=== PATIENT | male | born 1980 | race Two or more races ===

== ENCOUNTER 2019-10-13 16:57 | Inpatient (IN) | payer MEDICAID, OTHER ==
[~2019-10-13] VITALS: Ht 193 cm; Wt 181.0 kg
[2019-10-13 18:59] LABS: Basophils # (auto) 0 10 ^3/uL (0-0.2); Basophils % (auto) 0.3 % (0.0-2.0); Eosinophils # (auto) 0.1 10 ^3/uL (0-0.8); Lymphocytes # (auto) 1.1 10 ^3/uL (0.4-5.4); Monocytes # (auto) 1.1 10 ^3/uL (0-1.3)
[2019-10-13 19:03] LABS: Eosinophils % (auto) 1.1 % (0.0-7.0); Hematocrit 41.8 % (41.0-53.0); Mean Corpuscular Hemoglobin 28.9 pg (28.0-32.0); Mean Corpuscular Hgb Conc. 33.5 g/dL (32.0-36.0); Mean Corpuscular Volume 86.3 fL (80.0-100.0); Monocytes % (auto) 12.1 % (0.0-12.0); Neutrophils # (auto) 6.8 10 ^3/uL (1.6-8.6); Neutrophils % (auto) 74.5 % (37.0-80.0); Nucleated Red Blood Cells % 0.1 %; Platelet Count (auto) 206 10^3/uL (140-450); Red Blood Cells 4.84 10^6/uL (4.5-5.90); Red Cell Distribution Width 12.9 % (11.8-14.3); White Blood Cell 9.2 10^3/uL (4.4-10.8)
[2019-10-13 19:15] LABS: Albumin 2.8 g/dL (3.4-5.0); Calcium 8.9 mg/dL (8.5-10.1); Magnesium 2.3 mg/dL (1.6-2.6); Potassium 3.7 mmol/L (3.5-5.1)
[2019-10-13 19:21] LABS: BUN/Creatinine Ratio 9.3; Bilirubin, Total 0.5 mg/dL (0.2-1.0); Total Protein 7.7 g/dL (6.4-8.2)
[2019-10-13] MEDS ORDERED: ENOXAPARIN SOD 150 MG/1 ML SYRINGE SC ONE (19:45)
[2019-10-13 20:28] LABS: INR 0.95 (0.9-1.15); Partial Thromboplastin Time 28.5 sec (23.64-32.05)
[2019-10-13] MEDS ORDERED: ZOLPIDEM TARTRATE 5 MG TAB PO PRN (20:45)
[2019-10-13] MEDS: CLINDAMYCIN 600MG IV 50 ML IV SCH ×2 (20:45→23:46)
[2019-10-13] MEDS ORDERED: NITROGLYCERIN 0.4 MG SL TAB SL PRN (20:45)
[2019-10-13] MEDS ORDERED: ONDANSETRON HCL 4 MG/2 ML VIAL IV PRN (20:45)
[2019-10-13] MEDS ORDERED: MORPHINE SULF INJ 2 MG/ML SYRINGE 1ML IV PRN (20:45)
[2019-10-13] MEDS ORDERED: LORazepam 0.5 MG TAB PO PRN (20:45)
[2019-10-13] MEDS ORDERED: DEXTROSE (50%) 50ML SYRG IV PRN (20:45)
[2019-10-13] MEDS: ENOXAPARIN SOD 100 MG/1 ML SYRINGE SC SCH (22:00)
[2019-10-13 22:15] VITALS: BP 132/74
[2019-10-13] MEDS: SODIUM CHLORIDE 0.9% 1,000 ML IV SCH (22:15)
--- NOTE | 2019-10-13 22:15 | NUR ---
Telemetry admit from ER ANURAG LAZAR admitted to Telemetry unit after SBAR received. Patient oriented to PAULO FRITZ, RN primary RN, unit, room, bed, and unit policies regarding patient care and visiting hours. Patient now on continuous telemetry monitoring, tele box # 69 and telemetry reading on arrival to unit is sinus rhythm at 90 beats per minute. Patient weighed by bedscale and encouraged to call if they need something. All questions and concerns addressed, patient verbalized understanding. Redness and edema noted to right lower extremity, skin intact, patient reports he was recently diagnosed with cellulitis and has begun taking Clindamycin for the infection. Bed in lowest locked position, side rails up x2, call light within reach. Will round every hour and as needed and continue to monitor
[2019-10-13 22:17] VITALS: BP 132/74
--- NOTE | 2019-10-13 23:15 | NUR ---
Critical Troponin from lab at 22:15, trending up, now 14.1. Received from phone call from Dr. Burns at 23:13, new order received for Left Heart Cath at 08:00 tomorrow, 10/14/19. Order read back and verified, will implement and continue care. Received call from lab at time of note for a critical Troponin of 15.6. Ricardo Burns and Duc aware. Will continue care.
[2019-10-13] MEDS: CARVEDILOL 3.125 MG TAB PO SCH (23:46)
[2019-10-13] MEDS: ATORVASTATIN 20 MG TAB PO SCH (23:46)
[2019-10-13] MEDS: ACCU-CHEK COMFORT CURVE STRIP VI SCH (23:46)
[2019-10-13] MEDS: ACETAMINOPHEN 325 MG TAB PO PRN (23:47)
--- NOTE | 2019-10-14 | NUR ---
Patient refusing to sign consents, states he has questions for Dr. Burns. Consents placed in the front of the chart, checklist begun, and patient made NPO at this time. Will continue care.
[2019-10-14] MEDS: InsuLIN REG 1unit/0.01ml Soln (100units/ml) SC SCH ×4 (00:37→17:55)
[2019-10-14 05:14] VITALS: BP 136/82
[2019-10-14] MEDS: ACCU-CHEK COMFORT CURVE STRIP VI SCH ×3 (06:10→17:29)
[2019-10-14] MEDS ORDERED: METF-370 PO (06:10)
[2019-10-14] MEDS ORDERED: CLIN300C8 PO (06:10)
[2019-10-14] MEDS: CLINDAMYCIN 600MG IV 50 ML IV SCH ×3 (06:10→17:28)
[2019-10-14 06:51] LABS: Basophils # (auto) 0 10 ^3/uL (0-0.2); Basophils % (auto) 0.3 % (0.0-2.0); Eosinophils # (auto) 0.1 10 ^3/uL (0-0.8); Eosinophils % (auto) 1.7 % (0.0-7.0); Hematocrit 41.3 % (41.0-53.0); Hemoglobin 13.7 g/dL (13.5-17.5); Lymphocytes # (auto) 1.2 10 ^3/uL (0.4-5.4); Mean Corpuscular Hemoglobin 29.3 pg (28.0-32.0); Mean Corpuscular Hgb Conc. 33.3 g/dL (32.0-36.0); Mean Corpuscular Volume 87.9 fL (80.0-100.0); Monocytes # (auto) 0.9 10 ^3/uL (0-1.3); Monocytes % (auto) 10.9 % (0.0-12.0); Neutrophils # (auto) 6.3 10 ^3/uL (1.6-8.6); Neutrophils % (auto) 73.1 % (37.0-80.0); Nucleated Red Blood Cells % 0.1 %; Platelet Count (auto) 197 10^3/uL (140-450); Red Cell Distribution Width 13.1 % (11.8-14.3); White Blood Cell 8.7 10^3/uL (4.4-10.8)
--- NOTE | 2019-10-14 07:00 | NUR ---
Patient lying in bed, awake and alert. No s/s of distress. Bed in lowest locked position, side rails up x2, call light within reach. Care endorsed to dayshift RN.
[2019-10-14 07:12] LABS: Potassium 3.4 mmol/L (3.5-5.1)
[2019-10-14 07:18] LABS: BUN/Creatinine Ratio 10.1; Calcium 8.8 mg/dL (8.5-10.1)
[2019-10-14] MEDS: ASPirin 81 mg TAB PO SCH (07:46)
[2019-10-14] MEDS: CLOPIDOGREL BISULFATE 75 MG TAB PO SCH (07:46)
[2019-10-14] MEDS: CARVEDILOL 3.125 MG TAB PO SCH ×2 (07:46→22:13)
[2019-10-14] MEDS: LISINOPRIL 10 MG TAB PO SCH (07:47)
--- NOTE | 2019-10-14 08:00 | NUR ---
[facility] RECEIVED CALL FROM DIRECTOR OF PHYSIOTHERAPY SERVICES RN, PER MARISOL SANCHES, PATIENT EXCEEDS WEIGHT FOR CARDIAC TABLE, AND PROCEDURE WILL BE CANCELLED. WILL NOTIFY LOCKS INSPECTOR HOSPITALIST.
--- NOTE | 2019-10-14 08:05 | NUR ---
TENSION WORKER HOSPITALIST PAGE OUT TO TENSION WORKER HOSPITALIST TO NOTIFY OF CANCELLED LHC WITH CRITICAL TROP LEVEL. AWAITING CALL BACK.
[2019-10-14 09:00] VITALS: BP 125/79
--- NOTE | 2019-10-14 09:30 | NUR ---
IVORY CARVER HOSPITALIST PAGE #2 OUT TO IVORY CARVER HOSPITALIST TO NOTIFY OF CANCELLED LHC WITH CRITICAL TROP LEVEL. AWAITING CALL BACK.
[2019-10-14] MEDS: ENOXAPARIN SOD 100 MG/1 ML SYRINGE SC SCH ×2 (10:00→22:12)
[2019-10-14] MEDS: DOCUSATE SOD 100 MG CAP PO SCH (10:00)
[2019-10-14] MEDS: SODIUM CHLORIDE 0.9% 1,000 ML IV SCH ×2 (10:02→22:13)
--- NOTE | 2019-10-14 11:50 | NUR ---
CALL OUT TO MD LUI TO NOTIFY OF CANCELLED LHC WITH CRITICAL TROP LEVEL. AWAITING CALL BACK.
--- NOTE | 2019-10-14 12:00 | NUR ---
MD LUI AWARE OF PATIENTS STATUS AND CANCELLED CARDIAC INTERVENTION. PER MD PATIENT CAN RESUME DIET. NO NEW ORDERS RECEIVED.
[2019-10-14 13:00] VITALS: BP 124/75
--- NOTE | 2019-10-14 13:50 | NUR ---
CP PATIENT STATES HE IS HAVING CHEST PAIN DESCRIBED PRESSURE THAT RADIATES TO LEFT SHOULDER. WILL INITIATE CHEST PAIN PROTOCOL AND DO BED SIDE EKG.
[2019-10-14] MEDS ORDERED: POTASSIUM EFFERVESENT TAB 25 MEQ PO ONE ×2 (14:15→14:30)
--- NOTE | 2019-10-14 14:15 | NUR ---
MD LUI AT BED SIDE AND AWARE OF ABNORMAL EKG, PATIENTS CP COMPLAINT, AND LATEST LABS AND VITAL SIGNS. REFER TO ORDER HX.
[2019-10-14] MEDS ORDERED: OPTISON 3ml Vial for INJ IV ONE (16:04)
[2019-10-14 17:00] VITALS: BP 130/88
[2019-10-14] MEDS: FUROSEMIDE 20 MG TAB PO SCH (17:29)
[2019-10-14] MEDS: Glucerna Carbsteady SHAKE Vanilla 8oz PO SCH (17:54)
--- NOTE | 2019-10-14 19:30 | NUR ---
Opening Shift Note Assumed care of patient, awake and alert. No S/S of distress/SOB or pain. Instructed on POC and to call for assist PRN, will continue to monitor for changes Q1hr and PRN.
[2019-10-14] MEDS: ATORVASTATIN 20 MG TAB PO SCH (22:12)
[2019-10-15] MEDS: CLINDAMYCIN 600MG IV 50 ML IV SCH ×5 (00:59→23:36)
[2019-10-15] MEDS: ACCU-CHEK COMFORT CURVE STRIP VI SCH ×5 (01:00→23:37)
[2019-10-15] MEDS: InsuLIN REG 1unit/0.01ml Soln (100units/ml) SC SCH ×5 (01:19→23:46)
[2019-10-15 05:48] VITALS: BP 132/96
[2019-10-15] MEDS: FUROSEMIDE 20 MG TAB PO SCH ×2 (06:12→18:12)
[2019-10-15 06:26] LABS: Hematocrit 40.4 % (41.0-53.0); Hemoglobin 13.8 g/dL (13.5-17.5); Mean Corpuscular Hemoglobin 29.4 pg (28.0-32.0); Mean Corpuscular Hgb Conc. 34.1 g/dL (32.0-36.0); Mean Corpuscular Volume 86.3 fL (80.0-100.0); Platelet Count (auto) 217 10^3/uL (140-450); Red Blood Cells 4.69 10^6/uL (4.5-5.90); Red Cell Distribution Width 12.9 % (11.8-14.3)
[2019-10-15 06:41] LABS: Potassium 3.5 mmol/L (3.5-5.1)
[2019-10-15 06:45] LABS: Basophils % (manual) 0 (0.0-2.0); Blast Cells 0; Myelocytes % 0; Promyelocytes % 0; Reactive Lymphocytes 0
[2019-10-15 06:52] LABS: BUN/Creatinine Ratio 10.2; Calcium 8.5 mg/dL (8.5-10.1)
--- NOTE | 2019-10-15 07:02 | NUR ---
Patient has no complains of pain. No shortness of breath. Lab called regarding critical troponin of 26.1. Hospitalist Luis Sorensen NP, paged. Awaiting call back.
--- NOTE | 2019-10-15 07:29 | NUR ---
No call back from hospitalist. Will give report to oncoming RN.
[2019-10-15 07:35] LABS: Band Neutrophils % (manual) 1; Eosinophils % (manual) 3 (0-7); Lymphocytes % (manual) 14 (10.0-50.0); Metamyelocytes % 1; Monocytes % (manual) 9 (0-12)
--- NOTE | 2019-10-15 08:41 | NUR ---
Paged Dr Burns regarding increased trops. Awaiting a call back.
[2019-10-15 09:00] VITALS: BP 133/81
--- NOTE | 2019-10-15 09:19 | NUR ---
Spoke to Dr Burns. No new orders.
[2019-10-15] MEDS: DOCUSATE SOD 100 MG CAP PO SCH ×2 (10:00→10:10)
[2019-10-15] MEDS: Glucerna Carbsteady SHAKE Vanilla 8oz PO SCH ×3 (10:10→18:12)
[2019-10-15] MEDS: CARVEDILOL 3.125 MG TAB PO SCH ×2 (10:10→21:51)
[2019-10-15] MEDS: ASPirin 81 mg TAB PO SCH (10:10)
[2019-10-15] MEDS: LISINOPRIL 10 MG TAB PO SCH (10:11)
[2019-10-15] MEDS: ENOXAPARIN SOD 100 MG/1 ML SYRINGE SC SCH ×2 (10:11→21:52)
[2019-10-15] MEDS: CLOPIDOGREL BISULFATE 75 MG TAB PO SCH (10:11)
[2019-10-15 12:45] VITALS: BP 138/84
[2019-10-15] MEDS: SODIUM CHLORIDE 0.9% 1,000 ML IV SCH (12:45)
--- NOTE | 2019-10-15 14:05 | NUR ---
assessment re: ss consult Patient is a 39 year old male who is alert and oriented. Patients cognitive abilities are intact. Prior to admission patient lived home with family and functioned independently. Patient informed me he is able to care for his own ADLs. Per patient he will return home to his prior living arrangements post discharge and family will transport him home. Patient has no insurance. Patient has been assessed by Anirudh Cavanaugh of [facility]. Patient is not working at this time. Patient should qualify for [employer]. Anirudh is securing application. I have provided patient with resources for [facility], Dr. Burgess, and [facility] urgent care for follow up visits. I have provided patient with a prescription card from community assistance program. Patient informed me he had difficulty getting his medications due to no insurance. Patient also refused advanced directive. Estephania Stinson to see patient for discharge clinic. I informed patient he has a right to speak to a manager social services regarding all care. I informed patient he has a right to participate in any and all discharge planning. Patient does not have a POA and advanced directive. I have offered patient information on POA and advanced directives. I informed the patient the advantages and benefits of having an Advanced Directive. Patient verbalized understanding and agreed to discharge plan. Addendum: 10/15/19 at 1410 by Estephania DANIEL Amended: Links added.
[2019-10-15] MEDS: ACETAMINOPHEN 325 MG TAB PO PRN (16:59)
[2019-10-15 17:02] VITALS: BP 145/90
[2019-10-15] MEDS: ATORVASTATIN 20 MG TAB PO SCH (21:52)
[2019-10-15 22:00] VITALS: BP 132/86
[2019-10-16] MEDS: SODIUM CHLORIDE 0.9% 1,000 ML IV SCH ×2 (02:55→15:15)
[2019-10-16 05:00] VITALS: BP 147/86
[2019-10-16] MEDS: ACCU-CHEK COMFORT CURVE STRIP VI SCH ×4 (06:13→23:45)
[2019-10-16] MEDS: FUROSEMIDE 20 MG TAB PO SCH ×2 (06:13→17:58)
[2019-10-16] MEDS: CLINDAMYCIN 600MG IV 50 ML IV SCH ×4 (06:14→23:45)
[2019-10-16] MEDS: InsuLIN REG 1unit/0.01ml Soln (100units/ml) SC SCH ×3 (06:27→18:05)
--- NOTE | 2019-10-16 07:00 | NUR ---
Opening Shift Note Received report on the patient. Awake lying in bed. Patient shows no signs of distress at this time. Discussed plan of care with the patient. Bed in lowest position, side rails up x2, and the call light is within reach.
[2019-10-16 07:30] LABS: Hematocrit 37.8 % (41.0-53.0); Hemoglobin 12.9 g/dL (13.5-17.5); Mean Corpuscular Hemoglobin 29.1 pg (28.0-32.0); Mean Corpuscular Hgb Conc. 34.2 g/dL (32.0-36.0); Mean Corpuscular Volume 85.1 fL (80.0-100.0); Platelet Count (auto) 247 10^3/uL (140-450); Red Blood Cells 4.44 10^6/uL (4.5-5.90); Red Cell Distribution Width 12.9 % (11.8-14.3); White Blood Cell 7.5 10^3/uL (4.4-10.8)
[2019-10-16 07:32] LABS: Band Neutrophils % (manual) 0; Basophils % (manual) 0 (0.0-2.0); Blast Cells 0; Promyelocytes % 0; Reactive Lymphocytes 0
[2019-10-16 08:02] LABS: Calcium 8.6 mg/dL (8.5-10.1); Eosinophils % (manual) 2 (0-7); Lymphocytes % (manual) 17 (10.0-50.0); Metamyelocytes % 1; Monocytes % (manual) 8 (0-12); Myelocytes % 1; Potassium 3.7 mmol/L (3.5-5.1)
[2019-10-16 08:06] LABS: BUN/Creatinine Ratio 8.2
[2019-10-16 08:50] VITALS: BP 137/84
[2019-10-16] MEDS: DOCUSATE SOD 100 MG CAP PO SCH (10:00)
[2019-10-16] MEDS: CARVEDILOL 3.125 MG TAB PO SCH ×2 (10:35→22:19)
[2019-10-16] MEDS: CLOPIDOGREL BISULFATE 75 MG TAB PO SCH (10:35)
[2019-10-16] MEDS: ASPirin 81 mg TAB PO SCH (10:35)
[2019-10-16] MEDS: Glucerna Carbsteady SHAKE Vanilla 8oz PO SCH ×3 (10:35→17:58)
[2019-10-16] MEDS: ENOXAPARIN SOD 100 MG/1 ML SYRINGE SC SCH ×2 (10:36→22:19)
[2019-10-16] MEDS: LISINOPRIL 10 MG TAB PO SCH (10:36)
[2019-10-16 12:39] VITALS: BP 146/96
[2019-10-16 16:45] VITALS: BP 142/87
[2019-10-16 22:00] VITALS: BP 145/90
[2019-10-16] MEDS: ATORVASTATIN 20 MG TAB PO SCH (22:19)
[2019-10-17] MEDS: InsuLIN REG 1unit/0.01ml Soln (100units/ml) SC SCH ×3 (00:25→12:06)
[2019-10-17 05:00] VITALS: BP 139/71
[2019-10-17 05:10] LABS: Basophils # (auto) 0 10 ^3/uL (0-0.2); Basophils % (auto) 0.5 % (0.0-2.0); Eosinophils # (auto) 0.2 10 ^3/uL (0-0.8); Eosinophils % (auto) 2.4 % (0.0-7.0); Hematocrit 39.4 % (41.0-53.0); Hemoglobin 13.3 g/dL (13.5-17.5); Lymphocytes # (auto) 1.6 10 ^3/uL (0.4-5.4); Lymphocytes % (auto) 20.4 % (10.0-50.0); Mean Corpuscular Hgb Conc. 33.8 g/dL (32.0-36.0); Mean Corpuscular Volume 85.6 fL (80.0-100.0); Monocytes # (auto) 0.7 10 ^3/uL (0-1.3); Monocytes % (auto) 8.6 % (0.0-12.0); Neutrophils # (auto) 5.3 10 ^3/uL (1.6-8.6); Neutrophils % (auto) 68.1 % (37.0-80.0); Platelet Count (auto) 309 10^3/uL (140-450); Red Cell Distribution Width 12.9 % (11.8-14.3); White Blood Cell 7.9 10^3/uL (4.4-10.8)
[2019-10-17 05:17] LABS: Calcium 8.8 mg/dL (8.5-10.1); Potassium 3.8 mmol/L (3.5-5.1)
--- NOTE | 2019-10-17 05:41 | NUR ---
Lab called regarding critical troponin of 10.5, previously 17.4. Hospitalist Luis Sorensen,MATRIX INSPECTOR, made aware. No new orders at this time. Patient rounded. Patient has no SOB, no complains of pain. patient verbalized "everything is okay". Care continued.
[2019-10-17] MEDS: ACCU-CHEK COMFORT CURVE STRIP VI SCH ×2 (06:49→12:08)
[2019-10-17] MEDS: CLINDAMYCIN 600MG IV 50 ML IV SCH ×2 (06:50→11:54)
[2019-10-17] MEDS: FUROSEMIDE 20 MG TAB PO SCH (06:50)
[2019-10-17] MEDS: SODIUM CHLORIDE 0.9% 1,000 ML IV SCH (06:50)
--- NOTE | 2019-10-17 07:50 | NUR ---
Opening Shift Note Assumed care of patient, who is alert and oriented x4. Noted even chest rise and fall with respirations. No S/S of distress/SOB or pain. No reports of chest pain at this time. Bed is low, locked with 2x side rails up. Call light is within reach. Instructed on POC and to call for assist PRN, will continue to monitor for changes Q1hr and PRN.
[2019-10-17 09:00] VITALS: BP 137/93
[2019-10-17] MEDS: CLOPIDOGREL BISULFATE 75 MG TAB PO SCH (09:15)
[2019-10-17] MEDS: ASPirin 81 mg TAB PO SCH (09:15)
[2019-10-17] MEDS: CARVEDILOL 3.125 MG TAB PO SCH (09:15)
[2019-10-17] MEDS: Glucerna Carbsteady SHAKE Vanilla 8oz PO SCH ×2 (09:16→11:54)
[2019-10-17] MEDS: DOCUSATE SOD 100 MG CAP PO SCH (09:16)
[2019-10-17] MEDS: LISINOPRIL 10 MG TAB PO SCH (09:16)
[2019-10-17] MEDS: ENOXAPARIN SOD 100 MG/1 ML SYRINGE SC SCH (11:47)
[2019-10-17 13:00] VITALS: BP 128/80
--- NOTE | 2019-10-17 14:33 | NUR ---
Est energy needs [id number] kcal (20-23 kcal/kg IBW 89.1kg) Est protein needs 89-107g (1-1.2g/kg IBW 89.1kg) WIll reassess prn. Addendum: 10/17/19 at [address] Amended: Links added.
[2019-10-17] MEDS ORDERED: LISI-648 PO (15:30)
[2019-10-17] MEDS ORDERED: CEPH-37 PO (15:30)
[2019-10-17] MEDS ORDERED: CAR3125T PO (15:30)
[2019-10-17] MEDS ORDERED: ASPI81CH43 PO (15:30)
[2019-10-17] MEDS ORDERED: CLOP75TA28 PO (15:30)
[2019-10-17] MEDS ORDERED: ATOR20TA50 PO (15:30)
[2019-10-17] MEDS ORDERED: METF-489 PO (15:30)
[2019-10-17] MEDS ORDERED: DOXY-286 PO (15:31)
[2019-10-17 16:14] VITALS: BP 128/80
[2019-10-17 17:00] VITALS: BP 136/94
--- NOTE | 2019-10-17 17:52 | NUR ---
Discharge instructions given as ordered. Encourage to follow up with PMD as instructed. All questions and concerns addressed. Patient verbalized understanding. Home medications held in Pharmacy returned to patient. IV removed with catheter intact, pressure dressing applied. Telemetry unit returned to ICU. Patient taken to vehicle via wheelchair with all personal belongings, accompanied by staff. No distress noted at time of departure.
== END 2019-10-17 17:50 | disposition home or self-care (01) | DRG 190 ==
LOC: ER 16:57 → TELE 16:58 → TELE-WESTW 22:15
PROVIDERS: ADMIT Hospitalist; ATTEND Internal Medicine Nephrology
DX: I21.A1 Myocardial infarction type 2 (principal); I25.10 Atherosclerotic heart disease of native coronary artery without angina pectoris; E44.0 Moderate protein-calorie malnutrition; L03.115 Cellulitis of right lower limb; L03.116 Cellulitis of left lower limb; I50.22 Chronic systolic (congestive) heart failure; Z68.42 Body mass index [BMI] 45.0-49.9, adult; E11.21 Type 2 diabetes mellitus with diabetic nephropathy; E11.40 Type 2 diabetes mellitus with diabetic neuropathy, unspecified; E66.01 Morbid (severe) obesity due to excess calories; E78.5 Hyperlipidemia, unspecified; E87.6 Hypokalemia; I11.0 Hypertensive heart disease with heart failure; I25.5 Ischemic cardiomyopathy; J45.909 Unspecified asthma, uncomplicated; I25.2 Old myocardial infarction; Z91.19 Patient's noncompliance with other medical treatment and regimen
CPT/HCPCS: 36415; 71045; 80048; 80053; 80061; 82962; 83036; 83735; 83880; 84443; 84484; 85007; 85025; 85027; 85379; 85610; 85730; 93005; 93306; 93970; G0378; J1815; J3490; Q9956